=== PATIENT | female | born 1940 | race Caucasian/White ===

== ENCOUNTER 2018-11-14 09:18 | Emergency (ER) | payer MEDICARE, OTHER ==
[~2018-11-14] VITALS: Ht 157.5 cm; Wt 49.9 kg
[~2018-11-14 09:18] MED LIST: ALPRAZOLAM0.25 MG PO; ATENOLOL25 MG PO; LOSARTAN POTASS50 MG PO
--- OUTSIDE RECORDS SUMMARY | 2018-11-14 09:22 | XMS REPORT | Summary of Care ---
Author Author [facility] Organization [facility] Address Unknown Phone Unavailable Encounter HQ Encntr_alias(FIN) [id number] Date(s): 10/31/16 - 11/29/16 [facility] Discharge Disposition: Home or Self Care Attending Physician: Jeff Hunter MD Vital Signs No data available for this section Problem List No data available for this section Allergies, Adverse Reactions, Alerts Substance Reaction Severity Status NKDA Active Medications No data available for this section Results No data available for this section Immunizations No data available for this section Procedures No data available for this section Social History No data available for this section Assessment and Plan No data available for this section
--- OUTSIDE RECORDS SUMMARY | 2018-11-14 09:22 | XMS REPORT | CCD ---
Author Author Auto Generated Organization [facility] Address Unknown Phone Unavailable Care Team Providers Care [employer]inist Name Role Phone Aiyana Keegan Jacob CP Allergies, Adverse Reactions, Alerts Substance Reaction Status NKDA Active Medications Medication Instructions Start Date End Date Status morphine Sulfate 4 mg, Route: IVP, ONCE, Dosing 03/25/2012 03/25/2012 Completed Weight 50.909, kg, Priority: STAT, Start date: 03/25/12 1:07:00, Stop date: 03/25/12 1:07:00 clindamycin 300 mg 300 mg, 1 cap, PO, QID, 40 cap, 03/25/2012 Ordered oral capsule Substitution Allowed Ultram 50 mg oral 1 - 2 tabs, PO, Q4-6H, PRN, 30 tab, 03/25/2012 Ordered tablet as needed for pain, Substitution Allowed Vital Signs Most recent to oldest [Reference Range]: 1 Height 160.02 cm (03/24/2012 21:45:00) Weight 50.909 kg (03/24/2012 21:45:00)
--- OUTSIDE RECORDS SUMMARY | 2018-11-14 09:22 | XMS REPORT | Summary of Care ---
Author Author [facility] Organization [facility] Address Unknown Phone Unavailable Encounter HQ Encntr_alias(FIN) [id number] Date(s): 12/03/16 - 01/01/17 [facility] Discharge Disposition: Home or Self Care [...]
--- OUTSIDE RECORDS SUMMARY | 2018-11-14 09:22 | XMS REPORT | Summary of Care ---
Author Author [facility] Organization [facility] Address Unknown Phone Unavailable Encounter HQ Encntr_alias(FIN) [id number] Date(s): 06/05/16 - 06/05/16 [facility] [id number] [place] [address]- [phone] Discharge Disposition: Home or Self Care Attending Physician: Teddy Fontenot MD Referring Physician: Teddy Fontenot MD Vital Signs No data available for [...]
--- OUTSIDE RECORDS SUMMARY | 2018-11-14 09:22 | XMS REPORT | Continuity of Care Document ---
Author Author [facility] Address Unknown Phone Unavailable Problems Problem Status Onset Date Classification Date Reported Comments Source M43.16 Active 10/31/2016 [facility] BACK Active 2016 [facility] DX: Z71.89=OTHER SPECIFIED COUNSELING Active 05/10/2016 [facility] [place] ANKLE INJURY Active 03/24/2012 [facility] LOWER BACK PAIN Active 07/21/2000 [facility] OTHER SPECIFIED COUNSELING Active [facility] [place] Medications Medication Details Route Status Patient Instructions Ordering Provider Order Date Source clindamycin 300 mg oral capsule 300 mg, 1 cap, PO, QID, 40 cap, Substitution Allowed PO Active [facility] 03/25/2012 [facility] Ultram 50 mg oral tablet 1 - 2 tabs, PO, Q4-6H, PRN, 30 tab, as needed for pain, Substitution Allowed PO Active [facility] 03/25/2012 [facility] morphine Sulfate 4 mg, Route: IVP, ONCE, Dosing Weight 50.909, kg, Priority: STAT, Start date: 03/25/12 1:07:00, Stop date: 03/25/12 1:07:00 IVP No Longer Active [facility] 03/25/2012 [facility] Allergies, Adverse Reactions, Alerts Substance Category Reaction Severity Reaction type Status Date Reported Comments Source Immunizations Immunization Date Given Site Status Last Updated Comments Source Results Order Name Results Value Reference Range Date Interpretation Comments Source Pelvis w Pelvis Transvaginal US Pelvis w Pelvis Transvaginal US EXAM: US ABDOMEN COMPLETE EXAM: US PELVIS TRANSABDOMINAL EXAM: US PELVIS TRANSVAGINAL DATE: 05/13/2018 9:39 AM CDT INDICATION: - R10.9 Unspecified abdominal pain. Left flank pain in left upper quadrant abdominal pain for the past few days. Leiomyoma. Right ovarian cyst. ADDITIONAL INFORMATION: Patient is postmenopausal COMPARISON: Abdominal and pelvic ultrasounds of 02/26/2017. TECHNIQUE: Multiplanar grayscale and color Doppler ultrasound images of the abdomen. Multiplanar grayscale and color Doppler ultrasound images of the pelvis were obtained transabdominally through a distended urinary bladder followed by transvaginal examination postvoid. FINDINGS: Liver: Craniocaudal length: 13.5 cm. Normal. Echogenicity: Normal. Surface nodularity: None Mass (size and location): None. Portal vein: 10 mm with hepatopetal flow. Bile ducts: Common bile duct diameter: 4 mm. Normal. Intrahepatic ducts: Normal. Gallbladder: Normal. Gallstones: None. Gallbladder sludge: None. Gallbladder wall: 1.7 mm. Normal. Pericholecystic fluid: None. Sonographic Fontenot sign: Absent. Pancreas: No abnormalities of the visualized portions of the pancreas are demonstrated. Portions of the pancreas are obscured by overlying bowel gas. Spleen: Craniocaudal length: 7.3 cm. Normal. Mass or focal lesion (size and location): None. Right kidney: Size: 9.7 x 3.1 x 4.8 cm. Normal. Hydronephrosis: None. Echogenicity: Normal. Mass/Stone/Cyst (size and location): None. Left kidney: Size: 9.6 x 4.2 x 4.3 cm. Normal. Hydronephrosis: None. Echogenicity: Normal. Mass/Stone/Cyst (size and location): A 3 mm avascular hyperechoic focus is seen in the superior pole renal sinus of the left kidney, not seen on the prior exam, and likely from a small nonshadowing calculus versus vascular calcification Abdominal aorta and IVC: Visualized portions are normal. Ascites: None Pleural Effusions: None Uterus: Orientation: Anteverted Size: 9.3 x 6.5 x 7.3 cm Masses: Occupying nearly the entire mid uterine body, there is a heterogeneously hypoechoic mass measuring 5.8 x 5.9 x 6.5 cm compatible with a leiomyoma with submucosal and intramural components. Partial calcification of the lesion is again seen anteriorly. A hypoechoic mass is also seen in the posterior uterine body subserosal location measuring 3.1 x 2.5 x 2.7 cm compatible with a leiomyoma as well. This lesion is new. Cervix: 8 mm in maximal diameter nabothian simple cyst is seen.. Endometrium: Not visualized secondary to leiomyomas described above. Right ovary: Size: 2.5 x 1.8 x 2.3 cm Cysts: A stable simple cystic lesion is seen in the right ovary measuring 1.2 x 1.2 x 1.5 cm. Masses: None. Vascularity: Normal. Left ovary: Not visualized. No left adnexal region abnormalities are seen. Free fluid: A small amount of simple free fluid is seen in the retrouterine cul-de-sac. Other findings: None. IMPRESSION: 1. New 3 mm hyperechoic focus in the superior pole of the left kidney, likely a small amount shadowing calculus versus vascular calcification. 2. Stable simple 1.5 cm cyst in the right ovary, likely a benign postmenopausal cyst. Yearly follow-up of this lesion is recommended. 3. Uterine leiomyomas, the largest of which measures 6.5 cm and has decreased in size. This largest leiomyoma with submucosal and intramural components obscures the endometrium on this exam. If endometrial evaluation is warranted clinically, MRI of the pelvis with and without contrast may be performed. 4. Small amount of simple free fluid in the retrouterine cul-de-sac. 5. Sonographic imaging in the region of the patient's left abdominal pain reveals no masses, hernias, or fluid collections. If symptoms persist or worsen, CT scanning of the abdomen and pelvis with contrast may be performed for further evaluation. 05/13/2018 - - Read by: Keegan Serrano MD Dictated Date/time: 05/13/18 11:30 Electronically Signed by: Keegan Serrano MD 05/13/18 11:45 FINAL REPORT [facility] Abdomen complete US Abdomen complete US EXAM: US ABDOMEN COMPLETE EXAM: US PELVIS TRANSABDOMINAL EXAM: US PELVIS TRANSVAGINAL DATE: 05/13/2018 9:39 AM CDT INDICATION: - R10.9 Unspecified abdominal pain. Left flank pain in left upper quadrant abdominal pain for the past few days. Leiomyoma. Right ovarian cyst. ADDITIONAL INFORMATION: Patient is postmenopausal COMPARISON: Abdominal and pelvic ultrasounds of 02/26/2017. TECHNIQUE: Multiplanar grayscale and color Doppler ultrasound images of the abdomen. Multiplanar grayscale and color Doppler ultrasound images of the pelvis were obtained transabdominally through a distended urinary bladder followed by transvaginal examination postvoid. FINDINGS: Liver: Craniocaudal length: 13.5 cm. Normal. Echogenicity: Normal. Surface nodularity: None Mass (size and location): None. Portal vein: 10 mm with hepatopetal flow. Bile ducts: Common bile duct diameter: 4 mm. Normal. Intrahepatic ducts: Normal. Gallbladder: Normal. Gallstones: None. Gallbladder sludge: None. Gallbladder wall: 1.7 mm. Normal. Pericholecystic fluid: None. Sonographic Fontenot sign: Absent. Pancreas: No abnormalities of the visualized portions of the pancreas are demonstrated. Portions of the pancreas are obscured by overlying bowel gas. Spleen: Craniocaudal length: 7.3 cm. Normal. Mass or focal lesion (size and location): None. Right kidney: Size: 9.7 x 3.1 x 4.8 cm. Normal. Hydronephrosis: None. Echogenicity: Normal. Mass/Stone/Cyst (size and location): None. Left kidney: Size: 9.6 x 4.2 x 4.3 cm. Normal. Hydronephrosis: None. Echogenicity: Normal. Mass/Stone/Cyst (size and location): A 3 mm avascular hyperechoic focus is seen in the superior pole renal sinus of the left kidney, not seen on the prior exam, and likely from a small nonshadowing calculus versus vascular calcification Abdominal aorta and IVC: Visualized portions are normal. Ascites: None Pleural Effusions: None Uterus: Orientation: Anteverted Size: 9.3 x 6.5 x 7.3 cm Masses: Occupying nearly the entire mid uterine body, there is a heterogeneously hypoechoic mass measuring 5.8 x 5.9 x 6.5 cm compatible with a leiomyoma with submucosal and intramural components. Partial calcification of the lesion is again seen anteriorly. A hypoechoic mass is also seen in the posterior uterine body subserosal location measuring 3.1 x 2.5 x 2.7 cm compatible with a leiomyoma as well. This lesion is new. Cervix: 8 mm in maximal diameter nabothian simple cyst is seen.. Endometrium: Not visualized secondary to leiomyomas described above. Right ovary: Size: 2.5 x 1.8 x 2.3 cm Cysts: A stable simple cystic lesion is seen in the right ovary measuring 1.2 x 1.2 x 1.5 cm. Masses: None. Vascularity: Normal. Left ovary: Not visualized. No left adnexal region abnormalities are seen. Free fluid: A small amount of simple free fluid is seen in the retrouterine cul-de-sac. Other findings: None. IMPRESSION: 1. New 3 mm hyperechoic focus in the superior pole of the left kidney, likely a small amount shadowing calculus versus vascular calcification. 2. Stable simple 1.5 cm cyst in the right ovary, likely a benign postmenopausal cyst. Yearly follow-up of this lesion is recommended. 3. Uterine leiomyomas, the largest of which measures 6.5 cm and has decreased in size. This largest leiomyoma with submucosal and intramural components obscures the endometrium on this exam. If endometrial evaluation is warranted clinically, MRI of the pelvis with and without contrast may be performed. 4. Small amount of simple free fluid in the retrouterine cul-de-sac. 5. Sonographic imaging in the region of the patient's left abdominal pain reveals no masses, hernias, or fluid collections. If symptoms persist or worsen, CT scanning of the abdomen and pelvis with contrast may be performed for further evaluation. 05/13/2018 - - Read by: Keegan Serrano MD Dictated Date/time: 05/13/18 11:30 Electronically Signed by: Keegan Serrano MD 05/13/18 11:45 FINAL REPORT [facility] Pelvis w Pelvis Transvaginal US Pelvis w Pelvis Transvaginal US EXAM: US ABDOMEN COMPLETE EXAM: US PELVIS TRANSABDOMINAL EXAM: US PELVIS TRANSVAGINAL DATE: 02/26/2017 10:13 AM CDT INDICATION: - R10.9 Unspecified abdominal pain, K59.00 Constipation, unspecified. Abdominal bloating. Leiomyoma of uterus seen on outside imaging lumbar spine MRI in 2013. ADDITIONAL INFORMATION: None. COMPARISON: None. TECHNIQUE: Multiplanar grayscale and color Doppler ultrasound images of the abdomen. Multiplanar grayscale and color Doppler ultrasound images of the pelvis were obtained transabdominally through a distended urinary bladder followed by transvaginal examination postvoid. FINDINGS: Liver: Craniocaudal length: 13.9 cm. Normal. Echogenicity: Normal. Surface nodularity: None Mass (size and location): None. Portal vein: 10 mm with hepatopetal flow. Bile ducts: Common bile duct diameter: 4 mm. Normal. Intrahepatic ducts: Normal. Gallbladder: Gallstones: None. Gallbladder sludge: None. Gallbladder wall: 1.7 mm. Normal. Pericholecystic fluid: None. Sonographic Fontenot sign: Absent. Pancreas: No abnormalities of the visualized portions of the pancreas are demonstrated. Portions of the pancreas are obscured by overlying bowel gas. Spleen: Craniocaudal length: 6.4 cm. Normal. Mass or focal lesion (size and location): None. Right kidney: Size: 9.3 x 3.8 x 4.6 cm. Normal. Hydronephrosis: None. Echogenicity: Normal. Mass/Stone/Cyst (size and location): None. Left kidney: Size: 9.2 x 4.5 x 4.4 cm. Normal. Hydronephrosis: None. Echogenicity: Normal. Mass/Stone/Cyst (size and location): None. Abdominal aorta and IVC: Visualized portions are normal. Ascites: None Pleural Effusions: None Uterus: Orientation: Anteverted Size: 7.3 x 6.6 x 6.8 cm Masses: Occupying nearly the entire mid uterine body, there is a 7.1 x 6.1 x 6.6 cm hypoechoic mass compatible with a leiomyoma. There is some partial hyperechoic course calcification of this lesion anteriorly with some posterior acoustic shadowing. Cervix: Simple 7 mm in maximal diameter nabothian cyst is seen in the cervix. Endometrium: Not visualized and obscured by the leiomyoma described above. Right ovary: Size: 1.7 x 1.1 x 1.3 cm Cysts: Within the right ovary, there is an anechoic avascular thin-walled simple cystic lesion measuring 1.4 x 1.0 x 1.2 cm. Masses: None. Vascularity: Normal. Left ovary: Size: 2.3 x 1.0 x 1.4 cm Cysts: None. Masses: None. Vascularity: Normal. Adnexa: No adnexal masses or fluid collections are seen. Free fluid: None. Other findings: None. IMPRESSION: 1. No abnormalities of the abdomen are seen sonographically. 2. 7.1 cm in maximal diameter intramural and submucosal leiomyomas of the uterus, single the entire volume of the uterus and obscuring the endometrium. If further evaluation of the endometrium and of this leiomyoma or warranted clinically, MRI of the pelvis with and without contrast may be performed. 3. 1.4 cm simple cystic lesion in the right ovary, likely a benign postmenopausal cyst. Follow-up ultrasound in one years time is recommended for surveillance of this lesion. 02/26/2017 - - Read by: Keegan Serrano MD Dictated Date/time: 02/26/17 13:03 Electronically Signed by: Keegan Serrano MD 02/26/17 13:10 FINAL REPORT [facility] Abdomen complete US Abdomen complete US EXAM: US ABDOMEN COMPLETE EXAM: US PELVIS TRANSABDOMINAL EXAM: US PELVIS TRANSVAGINAL DATE: 02/26/2017 10:13 AM CDT INDICATION: - R10.9 Unspecified abdominal pain, K59.00 Constipation, unspecified. Abdominal bloating. Leiomyoma of uterus seen on outside imaging lumbar spine MRI in 2013. ADDITIONAL INFORMATION: None. COMPARISON: None. TECHNIQUE: Multiplanar grayscale and color Doppler ultrasound images of the abdomen. Multiplanar grayscale and color Doppler ultrasound images of the pelvis were obtained transabdominally through a distended urinary bladder followed by transvaginal examination postvoid. FINDINGS: Liver: Craniocaudal length: 13.9 cm. Normal. Echogenicity: Normal. Surface nodularity: None Mass (size and location): None. Portal vein: 10 mm with hepatopetal flow. Bile ducts: Common bile duct diameter: 4 mm. Normal. Intrahepatic ducts: Normal. Gallbladder: Gallstones: None. Gallbladder sludge: None. Gallbladder wall: 1.7 mm. Normal. Pericholecystic fluid: None. Sonographic Fontenot sign: Absent. Pancreas: No abnormalities of the visualized portions of the pancreas are demonstrated. Portions of the pancreas are obscured by overlying bowel gas. Spleen: Craniocaudal length: 6.4 cm. Normal. Mass or focal lesion (size and location): None. Right kidney: Size: 9.3 x 3.8 x 4.6 cm. Normal. Hydronephrosis: None. Echogenicity: Normal. Mass/Stone/Cyst (size and location): None. Left kidney: Size: 9.2 x 4.5 x 4.4 cm. Normal. Hydronephrosis: None. Echogenicity: Normal. Mass/Stone/Cyst (size and location): None. Abdominal aorta and IVC: Visualized portions are normal. Ascites: None Pleural Effusions: None Uterus: Orientation: Anteverted Size: 7.3 x 6.6 x 6.8 cm Masses: Occupying nearly the entire mid uterine body, there is a 7.1 x 6.1 x 6.6 cm hypoechoic mass compatible with a leiomyoma. There is some partial hyperechoic course calcification of this lesion anteriorly with some posterior acoustic shadowing. Cervix: Simple 7 mm in maximal diameter nabothian cyst is seen in the cervix. Endometrium: Not visualized and obscured by the leiomyoma described above. Right ovary: Size: 1.7 x 1.1 x 1.3 cm Cysts: Within the right ovary, there is an anechoic avascular thin-walled simple cystic lesion measuring 1.4 x 1.0 x 1.2 cm. Masses: None. Vascularity: Normal. Left ovary: Size: 2.3 x 1.0 x 1.4 cm Cysts: None. Masses: None. Vascularity: Normal. Adnexa: No adnexal masses or fluid collections are seen. Free fluid: None. Other findings: None. IMPRESSION: 1. No abnormalities of the abdomen are seen sonographically. 2. 7.1 cm in maximal diameter intramural and submucosal leiomyomas of the uterus, single the entire volume of the uterus and obscuring the endometrium. If further evaluation of the endometrium and of this leiomyoma or warranted clinically, MRI of the pelvis with and without contrast may be performed. 3. 1.4 cm simple cystic lesion in the right ovary, likely a benign postmenopausal cyst. Follow-up ultrasound in one years time is recommended for surveillance of this lesion. 02/26/2017 - - Read by: Keegan Serrano MD Dictated Date/time: 02/26/17 13:03 Electronically Signed by: Keegan Serrano MD 02/26/17 13:10 FINAL REPORT [facility] Spine lumbar wo contrast MRI Spine lumbar wo contrast MRI Spine lumbar wo contrast MRI CLINICAL INDICATION: Z71.89 ADVANCED CARE PLANNING/COUNSELIND DISCUSSION; low back pain COMPARISON: None TECHNIQUE: Multiplanar imaging of the lumbar spine was performed without IV contrast utilizing T1 and T2 weighted sequences. FINDINGS: Retroperitoneum/Soft tissues: There is fatty atrophy of the paralumbar musculature. Vertebral bodies: 5 non-rib bearing lumbar type vertebrae are presumed. There is mild levoscoliosis of lumbar spine. Mild decrease in vertebral body height at L1 level without any abnormal signal on T1 or T2-weighted images. Findings consistent with mild old compression fracture. Vertebral bodies otherwise demonstrate appropriate height and normal signal on T1 and T2 weighted sequences. Lower thoracic Cord: The conus medullaris demonstrates normal morphology and terminates at approximately T12-L1 level. T12-L1 level: There is spondylosis, decrease in disc space height and facet arthrosis noted. Prominent disc osteophyte complex is present at this level resulting in [id number] central canal stenosis. Combination of above and scoliosis results in moderate to severe right foraminal stenosis. L1-L2 level: There is spondylosis, facet arthrosis, disc desiccation, decrease in disc space height, and diffuse disc bulge. There is mild anterolisthesis of L2 relative to L1. Combination of above results in mild central canal stenosis and mild bilateral foraminal stenosis. L2-L3 level: Mild spondylosis, diffuse disc bulge, disc desiccation, and facet arthrosis are noted. There is mild anterolisthesis by approximately 5 mm. There is mild central canal stenosis and mild right foraminal stenosis. Moderate left foraminal stenosis. L3-L4 level: Mild spondylosis, diffuse disc bulge, disc desiccation and facet arthrosis are noted. There is mild central canal stenosis and mild left foraminal stenosis. Moderate right foraminal stenosis L4-L5 level: Spondylosis, diffuse disc bulge, and facet arthrosis are noted. There is anterolisthesis of L4 relative to L5 by approximately 8 mm. Combination of above results in moderate central canal stenosis. Moderate to severe left foraminal stenosis and mild right foraminal stenosis. L5-S1 level: Extensive facet arthrosis, decrease in disc space height and mild diffuse disc bulge are present. Prominent disc osteophyte complex mildly asymmetric to the right is noted. This results in moderate central canal stenosis. Moderate to severe right lateral recess stenosis. Mild bilateral foraminal stenosis. IMPRESSION: 5 lumbar-type vertebra are presumed. Correlation with plain films is needed to verify the the exact levels as the disc which is counted as L5-S1 level on the current study appears to be rudimentary. There is mild levoscoliosis of the lumbar spine. Mild old compression deformity L1 vertebral body. There is grade I retrolisthesis at L1-L2 and L2-L3 levels and grade I/II anterolisthesis at L4-L5 level. Combination of listhesis, disc disease, facet arthrosis, spondylolysis and mild levoscoliosis results in varying degrees of central canal and foraminal stenosis as discussed in detail above. Central canal stenosis is most pronounced at L4-L5 and L5-S1 levels. here is moderate to severe right foraminal stenosis at T12-L1 level. There is moderate to severe left foraminal stenosis at L4-L5 level. Mode rate to severe right lateral recess stenosis is present at L5-S1 level. SL: [id number] 06/05/2016 - - Read by: Georges Lacey MD Dictated Date/time: 06/06/16 07:23 Electronically Signed by: Georges Lacey MD 06/06/16 09:13 FINAL REPORT [facility] [place] Vital Signs Vital Sign Value Date Comments Source Height 160.02 cm 03/25/2012 [facility] Weight 50.909 03/25/2012 [facility] Encounters Location Location Details Encounter Type Encounter Number Reason For Visit Attending Provider ADM Date DC Date Status Source [facility] Emergency [id number] ANKLE INJURY KEEGAN MATA 03/24/2012 03/25/2012 Active [facility] [id number] LOWER BACK PAIN TEDDY FONTENOT 09/01/2012 Active [facility] Outpatient [id number] Teddy Fontenot 06/05/2016 06/06/2016 [facility] OP [facility] Patients [id number] Jeff Pakzajosh 10/31/2016 [facility]30[facility] [id number] Jeff Pakzaban 12/03/2016 01/02/2017 [facility] OP Therapy Patients [id number] Jeff Pakzaban 01/02/2017 02/01/2017 [facility] [place] [facility] [id number] Teddy Fontenot 02/26/2017 02/27/2017 [facility] [place] Procedures Procedure Code Date Perfomer Comments Source
--- OUTSIDE RECORDS SUMMARY | 2018-11-14 09:22 | XMS REPORT | Summary of Care ---
Author Author [facility] Outpatient Imaging [facility] Outpatient [facility] Address Unknown Phone Unavailable Encounter HQ Encntr_alias(FIN) [id number] Date(s): 02/26/17 - 02/26/17 [facility] Outpatient Imaging [facility] [address] [facility], [address] [place], [place] [address] [phone] Discharge Disposition: Home or Self Care Attending Physician: Teddy Fontenot MD Vital Signs No [...]
--- OUTSIDE RECORDS SUMMARY | 2018-11-14 09:22 | XMS REPORT | Summary of Care ---
Author Author [facility] Organization [facility] Address Unknown Phone Unavailable Encounter HQ Encntr_alias(FIN) [id number] Date(s): 01/02/17 - 01/31/17 [facility] Discharge Disposition: Home or Self Care Attending [...]
--- OUTSIDE RECORDS SUMMARY | 2018-11-14 09:22 | XMS REPORT | Clinical Summary ---
Author Author [facility] Organization [facility] Address Unknown Phone Unavailable Care Team Providers Care Shampoo Person Name Role Phone Teddy Fontenot MD PCP Unavailable Allergies Comments Active Allergy Reactions Severity Noted Date Penicillins 10/16/2016 Medications End Date Status Medication Sig Dispensed Refills Start Date Active ALPRAZolam (XANAX) 0.25 0 MG tablet 7 Active losartan (COZAAR) 50 MG 0 tablet 7 Active Problems No known active problems Family History Medical History Relation Name Comments Cancer Brother BRAIN Hypertension Father Stroke Father Hypertension Mother Hypertension Sister Relation Name Status Comments Brother Father Mother Sister Social History Date Tobacco Use Types Packs/Day Years Used Never Smoker Alcohol Use Drinks/Week oz/Week Comments Yes [employer] Sex Assigned at Date Recorded Not on file Industry Job Start Date Occupation Not on file Not on file Not on file Travel End Travel History Travel Start No recent travel history available. Last Filed Vital Signs Not on file Plan of Treatment Health Maintenance Due Date Last Done Comments SHINGLES VACCINES (#1) 1990 65+ PNEUMOCOCCAL VACCINE 2005 (1 of 2 - PCV13) PNEUMOCOCCAL 2005 POLYSACCHARIDE VACCINE AGE 65 AND OVER INFLUENZA VACCINE 02/18/2019 Results Not on fileafter 11/13/2017 Insurance Payer Benefit Subscriber ID Type Phone Address Plan / Group MEDICARE MEDICARE xxxxxxxxxxx Medicare [place], [place] PART A AND B COMMERCIAL MISC MISC xxxxxxxx Commercial COMMERCIAL 2015 JOHN sidhu (Home) [place] [id number] Advance Directives Patient has advance care planning documents on file. For more information, rashida shaikh contact: [facility] [address] [place] [address]
[2018-11-14] MEDS ORDERED: ATENOLOL50 MG PO (09:33)
== END 2018-11-14 09:42 | disposition home or self-care (01) ==
LOC: ER 09:18
DX: I10 Essential (primary) hypertension (principal)
CPT/HCPCS: 99282

== ENCOUNTER 2019-08-12 03:30 | Emergency (ER) | payer MEDICARE, OTHER ==
[~2019-08-12] VITALS: Ht 157.5 cm; Wt 49.9 kg
[~2019-08-12 03:30] MED LIST changes: +ATENOLOL50 MG PO
[2019-08-12] MEDS ORDERED: ONDANSETRON HCL INJ 2MG/ML 2ML 2 MG/ML VIAL IV STA (03:38)
[2019-08-12] MEDS ORDERED: MORPHINE SULFATE INJ 4 MG/ML INJ 1ML IV STA (03:38)
[2019-08-12] MEDS ORDERED: SODIUM CHLORIDE 0.9% 1000ML 1,000 ML IV STA (03:38)
[2019-08-12] MEDS ORDERED: ASPIRIN 81 MG CHEW TAB PO ONE (03:45)
[2019-08-12 04:28] LABS: BASOPHILS # (AUTO) 0.1 (0.0-0.1); BASOPHILS % 0.9 % (0.0-1.0); EOSINOPHILS # (AUTO) 0.1 (0.0-0.4); EOSINOPHILS % 0.9 % (0.0-6.0); HEMATOCRIT 42.5 % (34.2-44.1); HEMOGLOBIN 14.3 g/dL (12.0-16.0); LYMPHOCYTES # (AUTO) 1.5 (1.0-3.2); LYMPHOCYTES % 21.8 % (18.0-39.1); MEAN CORPUSCULAR HEMOGLOBIN 32.4 pg (28-32); MEAN CORPUSCULAR HGB CONC 33.6 g/dL (31-35); MEAN CORPUSCULAR VOLUME 96.2 fL (81-99); MONOCYTES # (AUTO) 0.6 (0.2-0.8); MONOCYTES % 7.9 % (4.4-11.3); NEUTROPHILS # (AUTO) 4.8 (2.1-6.9); NEUTROPHILS % 68.1 % (38.7-80.0); PLATELET COUNT 206 x10e3/uL (140-360); RED BLOOD COUNT 4.42 x10e6/uL (3.6-5.1); RED CELL DISTRIBUTION WIDTH 12.7 % (11.7-14.4)
[2019-08-12 04:49] LABS: ALANINE AMINOTRANSFERASE 20 IU/L (0-55); ALBUMIN 4.3 g/dL (3.5-5.0); ALBUMIN/GLOBULIN RATIO 1.4 (0.8-2.0); ALKALINE PHOSPHATASE 74 IU/L (40-150); ANION GAP 15.4 mmol/L (8-16); BLOOD UREA NITROGEN 18 mg/dL (7-26); BUN/CREATININE RATIO 22 (6-25); CALCIUM 10.2 mg/dL (8.4-10.2); CARBON DIOXIDE 26 mmol/L (22-29); CHLORIDE 100 mmol/L (98-107); CREATINE KINASE 47 IU/L (29-168); CREATININE, SERUM 0.81 mg/dL (0.57-1.11); EST GLOMERULAR FILTRATION RATE > 60 ML/MIN (60-); GLUCOSE 97 mg/dL (74-118); LIPASE 43 U/L (8-78); POTASSIUM 3.4 mmol/L (3.5-5.1); SODIUM 138 mmol/L (136-145)
[2019-08-12] MEDS ORDERED: IOPAMIDOL 370 MG/ML 200 ML INFUS..BTL INJ ONE (06:23)
[2019-08-12] MEDS ORDERED: SODIUM CHLORIDE 0.9% 50ML 50 ML ONE (06:24)
--- NOTE | 2019-08-12 06:27 | Diagnostic Imaging Report ---
EXAM: CT Abdomen and Pelvis WITH contrast INDICATION: Upper abdominal pain with nausea COMPARISON: None. TECHNIQUE: Abdomen and pelvis were scanned utilizing a multidetector helical scanner from the lung base to the pubic symphysis after administration of IV contrast. Coronal and sagittal reformations were obtained. Routine protocol was performed. Scan was performed when during portal venous phase. IV CONTRAST: 100 mL of Isovue 370 ORAL CONTRAST: Water COMPLICATIONS: None RADIATION DOSE: Total DLP: 158 mGy*cm Estimated effective dose: (DLP x 0.015 x size factor) mSv CTDIvol has been reviewed. It is below the limits set by the Radiation Protocol Committee (RPC). Dose modulation, iterative reconstruction, and/or weight based adjustment of the mA/kV was utilized to reduce the radiation dose to as low as reasonably achievable. FINDINGS: LINES and TUBES: None. LOWER THORAX: Borderline cardiomegaly. HEPATOBILIARY: No focal hepatic lesions. No biliary ductal dilation. GALLBLADDER: No radio-opaque stones or sludge. No wall thickening. SPLEEN: No splenomegaly. PANCREAS: No focal masses or ductal dilatation. ADRENALS: No adrenal nodules KIDNEYS/URETERS: Kidneys enhance symmetrically. No hydronephrosis. No cystic or solid mass lesions. No stones. GI TRACT: No abnormal distention, wall thickening, or evidence of bowel obstruction. Multiple Fluid-filled nondilated loops of small bowel in the mid to lower abdomen. Appendix is not clearly identified. There is however no fat stranding or adenopathy in the right lower quadrant to suggest appendicitis. PELVIC ORGANS/BLADDER: Enlarged uterus with heterogeneous 6.6 x 7.6 x 6.8 cm (SIxAPxML) mass within the mid uterine body LYMPH NODES: No lymphadenopathy. VESSELS: There is mild atherosclerotic disease in the aorta and major arterial branches. PERITONEUM / RETROPERITONEUM: No free air or fluid. 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 Low bone mineral density. Subtle L2 vertebral body compression deformity SOFT TISSUES: Bilateral breast implant devices with calcified capsules. IMPRESSION: 1. Mild nonspecific findings which can be seen with enteritis. 2. Enlarged uterus with a 7.6 cm heterogeneous endometrial/intramural mass which could be a fibroid versus endometrial neoplasm. Recommend gynecology referral. 3. 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 Low bone mineral density. Subtle L2 vertebral body compression deformity Signed by: Dylan Dumont DO on 08/12/2019 6:26 AM
[2019-08-12 09:22] LABS: CREATINE KINASE MB 2.2 ng/mL (0-5.0)
[2019-08-12 09:30] VITALS: BP 133/79
== END 2019-08-12 09:42 | disposition home or self-care (01) ==
LOC: ER 03:30
DX: R10.13 Epigastric pain (principal); Z79.82 Long term (current) use of aspirin
CPT/HCPCS: 36415; 74177; 80053; 82550; 82553; 83690; 83880; 84484; 85025; 93005; 99284; J2405; J7030; Q9967

== ENCOUNTER 2021-07-21 01:45 | Emergency (ER) | payer MEDICARE, OTHER ==
[~2021-07-21] VITALS: Ht 157.5 cm; Wt 49.9 kg
[2021-07-21] MEDS ORDERED: TRAMADOL HCL 50 MG TAB PO ONE (02:30)
[2021-07-21] MEDS ORDERED: HYDROCODON-ACE1 EAC9 PO ×2 (03:58→04:04)
[2021-07-21] MEDS ORDERED: ONDANSETRON ODT4 MG PO ×2 (03:58→04:04)
[2021-07-21] MEDS ORDERED: HYDROMORPHONE 1MG/1ML INJ IV STA (03:59)
[2021-07-21] MEDS ORDERED: ONDANSETRON HCL 4 MG ORAL DISINTEGRATING TAB PO ONE (04:00)
== END 2021-07-21 06:32 | disposition home or self-care (01) ==
LOC: ER 02:22
DX: S32.511A Fracture of superior rim of right pubis, initial encounter for closed fracture (principal); S32.591A Other specified fracture of right pubis, initial encounter for closed fracture; M25.531 Pain in right wrist; M79.641 Pain in right hand; I10 Essential (primary) hypertension; W19.XXXA Unspecified fall, initial encounter; Y92.009 Unspecified place in unspecified non-institutional (private) residence as the place of occurrence of the external cause; Z79.899 Other long term (current) drug therapy
CPT/HCPCS: 73110; 73130; 73502; 99283; J1170; Q0162